=== PATIENT | female | born 1970 | race Caucasian/White ===

== ENCOUNTER 2019-12-06 02:11 | Outpatient (CLI) | payer OTHER, SELFPAY ==
[2019-12-06 18:09] LABS: SARS-CoV-2 RNA PCR Negative
== END 2019-12-06 02:12 | disposition home or self-care (01) ==
LOC: ANHCOVIDDT 02:11
PROVIDERS: Visit Provider Internal Medicine Gastroenterology
DX: Z01.818 Encounter for other preprocedural examination (principal); Z11.59 Encounter for screening for other viral diseases
CPT/HCPCS: 87635; C9803; U0003

== ENCOUNTER 2019-12-09 03:32 | Day surgery (SDC) | payer OTHER, SELFPAY ==
[2019-12-04 10:38] VITALS: BMI 22.6
[2019-12-09 12:32] VITALS: BMI 23.5
[2019-12-09] MEDS: LACTATED RINGERS 1,000 ML 150 ML IV CONT (12:45)
--- NOTE | 2019-12-09 14:23 | WPDANESEPPF ---
Anes - Initial Pre Proc Eval Procedure: Operation Date: 12/09/19 13:45 Proposed Procedures p Esophagogastroduodenoscopy - Bernardino Frias MD Date/Time: 12/09/19 14:23 Surgeon: Bernardino Frias MD Pre Op Diagnosis: GERD Patient Data Age: 49 Gender: F Height: 5 ft 4 in Weight: 62.1 kg Allergies Allergy/AdvReac Type Severity Reaction Status Date / Time hydrocodone Allergy Unknown unknown Verified 12/09/19 12:31 codine Allergy Unknown unknown Uncoded 12/04/19 10:35 Home Medications Medication Instructions Recorded Confirmed Type albuterol (refill) 90 90 mcg INHALATION QID 11/13/19 12/04/19 History mcg/actuation aerosol inhaler cetirizine 10 mg capsule 10 mg PO DAILY 11/13/19 12/04/19 History ipratropium bromide 17 1 puff INHALATION QID 11/13/19 12/04/19 History mcg/actuation HFA aerosol inhaler montelukast 10 mg tablet 10 mg PO DAILY 11/13/19 12/04/19 History omeprazole 20 mg capsule,delayed 20 mg PO DAILY 11/13/19 12/04/19 History release sumatriptan succinate 100 mg tablet 100 mg PO ONCE 11/13/19 History tramadol 50 mg tablet 50 mg PO Q6H PRN 11/13/19 History peg 3350-electrolytes 236 240 ml PO Q10M #4000 ml 12/02/19 Rx gram-22.74 gram-6.74 gram-5.86 gram solution Patient hx anesthesia problems: none Family hx anesthesia problems: none PMFSH Past Medical History Medical History Constipation COPD (chronic obstructive pulmonary disease) Fibromyalgia Hyperlipemia Lymphadenitis Seasonal allergies Surgical History Surgical History H/O prior ablation treatment H/O tubal ligation Social History Social History Smoking status: Current every day smoker Tobacco type: cigarettes Alcohol intake: never Substance use: current Substance use type: marijuana Anes - Eval Final PreProcedure Day of Procedure 12/09/19 14:23 Patient weight: normal Heart: regular rate and rhythm Lungs: clear to auscultation Airway: Mallampati scale class II Neurological: alert and oriented Last oral intake: >/= 8 hours ASA classification: III Emergent: no Anesthetic plan: proceed Anesthesia type and monitoring: general GIVS and standard monitoring Informed Consent: The patient's anesthetic plan and its attendant risks and benefits were discussed with the patient/family/POA. Questions were solicited and answers provided to the satisfaction of the patient/family/POA.
--- NOTE | 2019-12-09 14:41 | PM.HPGS ---
History of Present Illness History of Present Illness Consent: Risks, benefits, and alternatives have been discussed and questions answered. Patient agrees to proceed with procedure. Chief complaint: GERD Narrative: Soni Voss is a 49 year old female with gerd better with omeprazole, also bloating Review of Systems Constitutional: Constitutional: Denies headache(s) and Denies weakness Eyes: Eyes: Denies blurry vision ENT: Reports Normal hearing present, Denies headache(s) and Denies neck pain Cardiovascular: Cardiovascular: Denies chest pain and Denies dyspnea Respiratory: Respiratory: Denies dyspnea Gastrointestinal: Gastrointestinal: Reports no additional gastrointestinal complaints Genitourinary: Genitourinary: Denies dysuria Musculoskeletal: Musculoskeletal: Denies neck pain Integumentary/Breasts: Skin/Breast: Denies dry skin Neurologic: Reports Normal hearing present, Denies headache(s) and Denies weakness Psychiatric: Psychiatric: Denies anxiety Endocrine: Endocrine: Denies change in body appearance Hematologic/Lymphatic: Hematologic/Lymphatic: Denies easy bleeding Allergic/Immunologic: Allergic/Immunologic: Denies urticaria PMFSH Past Medical History Medical History Constipation COPD (chronic obstructive pulmonary disease) Fibromyalgia Hyperlipemia Lymphadenitis Seasonal allergies Surgical History Surgical History H/O prior ablation treatment H/O tubal ligation Social History Social History Smoking status: Current every day smoker Tobacco type: cigarettes Alcohol intake: never Substance use: current Substance use type: marijuana Meds Home Medications and Allergies Home Medications Medication Instructions Recorded Confirmed Type albuterol (refill) 90 90 mcg INHALATION QID 11/13/19 12/04/19 History mcg/actuation aerosol inhaler cetirizine 10 mg capsule 10 mg PO DAILY 11/13/19 12/04/19 History ipratropium bromide 17 1 puff INHALATION QID 11/13/19 12/04/19 History mcg/actuation HFA aerosol inhaler montelukast 10 mg tablet 10 mg PO DAILY 11/13/19 12/04/19 History omeprazole 20 mg capsule,delayed 20 mg PO DAILY 11/13/19 12/04/19 History release sumatriptan succinate 100 mg tablet 100 mg PO ONCE 11/13/19 History tramadol 50 mg tablet 50 mg PO Q6H PRN 11/13/19 History peg 3350-electrolytes 236 240 ml PO Q10M #4000 ml 12/02/19 Rx gram-22.74 gram-6.74 gram-5.86 gram solution Allergies Allergy/AdvReac Type Severity Reaction Status Date / Time hydrocodone Allergy Unknown unknown Verified 12/09/19 12:31 codine Allergy Unknown unknown Uncoded 12/04/19 10:35 Exam Const: General: comfortable and no acute distress HENMT: General nose exam: Normal nares present Eyes: General: appearance normal, both eyes and all related structures Neck: Neck: no JVD Resp: Auscultation: clear to auscultation bilaterally Cardio: Rate: regular rate Rhythm: regular rhythm GI: Inspection: non-distended GI Palp: Yes Soft to palpation Skin: General skin exam: normal color Neuro: General: gait normal Speech: normal speech Extrem: General: normal to inspection Psych: Mental Status: mental status grossly normal Assessment and Plan Assessment and plan (1) GERD (gastroesophageal reflux disease): Code(s): K21.9 - Gastro-esophageal reflux disease without esophagitis Status: Acute Assessment and Plan: egd with biopsies, better with ppi (2) Bloating: Code(s): R14.0 - Abdominal distension (gaseous) Status: Acute Assessment and Plan: assess if celiac disease (3) COPD (chronic obstructive pulmonary disease): Code(s): J44.9 - Chronic obstructive pulmonary disease, unspecified Status: Acute
[2019-12-09] MEDS: BENZOCAINE (*SP) 60 ML SPRAY CAN (HURRICAINE) 1 SPRAY MUCOUS MEM (14:43)
[2019-12-09 14:58] VITALS: BP 100/53; PULSE 52; RESP 19; O2SAT 98
[2019-12-09 15:08] VITALS: BP 116/62; PULSE 62; RESP 19; O2SAT 98
[2019-12-09 15:18] VITALS: BP 119/68; PULSE 62; RESP 19; O2SAT 98
== END 2019-12-09 15:32 | disposition home or self-care (01) ==
PROVIDERS: PCP Family Medicine; Visit Provider Internal Medicine Gastroenterology
PROC: 0DJ08ZZ Inspection of Upper Intestinal Tract, Via Natural or Artificial Opening Endoscopic (ICD-10-PCS; CPT 43235; principal; 2019-12-09 13:45)
DX: K21.9 Gastro-esophageal reflux disease without esophagitis (principal); K29.50 Unspecified chronic gastritis without bleeding; E78.5 Hyperlipidemia, unspecified; J44.9 Chronic obstructive pulmonary disease, unspecified; M79.7 Fibromyalgia; F17.210 Nicotine dependence, cigarettes, uncomplicated
CPT/HCPCS: 43239; 88305; J2704; J7120

== ENCOUNTER → 2020-09-04 00:40 | Outpatient (CLI) | payer MEDICARE, MEDICAID, SELFPAY ==
[2020-09-04 18:52] LABS: SARS-CoV-2 RNA PCR Negative
== END ==
PROVIDERS: PCP Family Medicine; Visit Provider Internal Medicine Gastroenterology
DX: Z01.812 Encounter for preprocedural laboratory examination (principal); Z20.822 Contact with and (suspected) exposure to COVID-19
CPT/HCPCS: C9803; U0003; U0005

== ENCOUNTER 2020-09-07 01:57 | Day surgery (SDC) | payer MEDICARE, MEDICAID, SELFPAY ==
[2020-08-30 12:14] VITALS: BMI 23.8
[2020-09-07] MEDS: LACTATED RINGERS 1,000 ML 150 ML IV CONT (06:58)
[2020-09-07 07:01] VITALS: BP 146/82; PULSE 78; RESP 18; TEMP 37; O2SAT 100; BMI 22.7
--- NOTE | 2020-09-07 07:47 | WPDANESEPPF ---
Anes - Initial Pre Proc Eval Procedure: Operation Date: 09/07/20 08:00 Proposed Procedures p Colonoscopy - Bernardino Frias MD Date/Time: 09/07/20 07:47 Surgeon: Bernardino Frias MD Pre Op Diagnosis: Constipation, Change In Bowel Habits Patient Data Age: 50 Gender: F Height: 5 ft 4 in Weight: 60.1 kg Last Vital Signs Temp 98.6 F 09/07/20 07:01 Pulse 78 09/07/20 07:01 Resp 18 09/07/20 07:01 BP 146/82 H 09/07/20 07:01 Pulse Ox 100 09/07/20 07:01 Allergies Allergy/AdvReac Type Severity Reaction Status Date / Time hydrocodone Allergy Unknown unknown Verified 09/07/20 06:59 codine Allergy Unknown unknown Uncoded 09/07/20 06:59 Home Medications Medication Instructions Recorded Confirmed Type albuterol (refill) 90 90 mcg INHALATION QID 11/13/19 08/30/20 History mcg/actuation aerosol inhaler cetirizine 10 mg capsule 10 mg PO DAILY 11/13/19 08/30/20 History montelukast 10 mg tablet 10 mg PO DAILY 11/13/19 08/30/20 History omeprazole 20 mg capsule,delayed 20 mg PO DAILY 11/13/19 08/30/20 History release plecanatide 3 mg tablet 3 mg PO DAILY #30 tablet 07/19/20 08/30/20 Rx sodium,potassium,mag sulfates 17.5 See Rx Instructions PO .COMPLEX 07/26/20 Rx gram-3.13 gram-1.6 gram oral soln #354 ml famotidine 10 mg PO DAILY 08/30/20 08/30/20 History Patient hx anesthesia problems: none Family hx anesthesia problems: none PMFSH Past Medical History Medical History (Updated 07/19/20 @ 15:47 by JOEY Carballo) Bloating Constipation COPD (chronic obstructive pulmonary disease) Fibromyalgia GERD (gastroesophageal reflux disease) Hyperlipemia Lymphadenitis Seasonal allergies Tobacco abuse Surgical History Surgical History H/O prior ablation treatment H/O tubal ligation Social History Social History (Reviewed 07/19/20 @ 15:06 by GIOVANI Ramirez Smoking status: Current every day smoker Tobacco type: cigarettes Alcohol intake: never Substance use: current Substance use type: marijuana Living arrangements: with family Gender identity (if verbalized by the patient): Female Spiritual care concerns: No Anes - Eval Final PreProcedure Day of Procedure 09/07/20 07:47 Patient weight: normal Heart: regular rate and rhythm Lungs: clear to auscultation Airway: Mallampati scale class II Neurological: alert and oriented Last oral intake: >/= 8 hours ASA classification: III Emergent: no Anesthetic plan: proceed Anesthesia type and monitoring: general GIVS and standard monitoring Informed Consent: The patient's anesthetic plan and its attendant risks and benefits were discussed with the patient/family/POA. Questions were solicited and answers provided to the satisfaction of the patient/family/POA.
--- NOTE | 2020-09-07 07:55 | PM.HPGS ---
History of Present Illness History of Present Illness Consent: Risks, benefits, and alternatives have been discussed and questions answered. Patient agrees to proceed with procedure. Chief complaint: Constipation, Change In Bowel Habits Narrative: Soni Voss is a 50 year old female here for screening colonoscopy, last one 2017 Review of Systems Constitutional: Constitutional: Denies headache(s) and Denies weakness Eyes: Eyes: Denies blurry vision ENT: Reports Normal hearing present, Denies headache(s) and Denies neck pain Cardiovascular: Cardiovascular: Denies chest pain and Denies dyspnea Respiratory: Respiratory: Denies dyspnea Gastrointestinal: Gastrointestinal: Reports no additional gastrointestinal complaints Genitourinary: Genitourinary: Denies dysuria Musculoskeletal: Musculoskeletal: Denies neck pain Integumentary/Breasts: Skin/Breast: Denies dry skin Neurologic: Reports Normal hearing present, Denies headache(s) and Denies weakness Psychiatric: Psychiatric: Denies anxiety Endocrine: Endocrine: Denies change in body appearance Hematologic/Lymphatic: Hematologic/Lymphatic: Denies easy bleeding Allergic/Immunologic: Allergic/Immunologic: Denies urticaria PMFSH Past Medical History Medical History (Updated 09/07/20 @ 07:55 by Bernardino Frias MD) Bloating Colon cancer screening Constipation COPD (chronic obstructive pulmonary disease) Fibromyalgia GERD (gastroesophageal reflux disease) Hyperlipemia Lymphadenitis Seasonal allergies Tobacco abuse Surgical History Surgical History H/O prior ablation treatment H/O tubal ligation Social History Social History Smoking status: Current every day smoker Tobacco type: cigarettes Alcohol intake: never Substance use: current Substance use type: marijuana Living arrangements: with family Gender identity (if verbalized by the patient): Female Spiritual care concerns: No Meds Home Medications and Allergies Home Medications Medication Instructions Recorded Confirmed Type albuterol (refill) 90 90 mcg INHALATION QID 11/13/19 08/30/20 History mcg/actuation aerosol inhaler cetirizine 10 mg capsule 10 mg PO DAILY 11/13/19 08/30/20 History montelukast 10 mg tablet 10 mg PO DAILY 11/13/19 08/30/20 History omeprazole 20 mg capsule,delayed 20 mg PO DAILY 11/13/19 08/30/20 History release sodium,potassium,mag sulfates 17.5 See Rx Instructions PO .COMPLEX 07/26/20 Rx gram-3.13 gram-1.6 gram oral soln #354 ml famotidine 10 mg PO DAILY 08/30/20 08/30/20 History plecanatide 3 mg tablet 3 mg PO DAILY #30 tablet 09/07/20 Rx Allergies Allergy/AdvReac Type Severity Reaction Status Date / Time hydrocodone Allergy Unknown unknown Verified 09/07/20 06:59 codine Allergy Unknown unknown Uncoded 09/07/20 06:59 Vital Signs Vital Signs - 24 hr 09/07/20 07:01 Temperature 98.6 F Pulse Rate 78 Respiratory Rate 18 Blood Pressure 146/82 H Pulse Oximetry 100 Exam Const: General: comfortable and no acute distress HENMT: General nose exam: Normal nares present Eyes: General: appearance normal, both eyes and all related structures Neck: Neck: no JVD Resp: Auscultation: clear to auscultation bilaterally Cardio: Rate: regular rate Rhythm: regular rhythm GI: Inspection: non-distended GI Palp: Yes Soft to palpation Skin: General skin exam: normal color Neuro: General: gait normal Speech: normal speech Extrem: General: normal to inspection Psych: Mental Status: mental status grossly normal Assessment and Plan Assessment and plan (1) Colon cancer screening: Code(s): Z12.11 - Encounter for screening for malignant neoplasm of colon Status: Acute Assessment and Plan: colonoscopy (2) Constipation: Code(s): K59.00 - Constipation, unspecified
[2020-09-07 08:14] VITALS: BP 102/67; PULSE 61; RESP 20; O2SAT 100
[2020-09-07 08:24] VITALS: BP 111/43; PULSE 62; RESP 20; O2SAT 100
[2020-09-07 08:34] VITALS: BP 112/58; PULSE 64; RESP 20; O2SAT 100
== END 2020-09-07 08:56 | disposition home or self-care (01) ==
PROVIDERS: PCP Family Medicine; Visit Provider Internal Medicine Gastroenterology
PROC: 0DJD8ZZ Inspection of Lower Intestinal Tract, Via Natural or Artificial Opening Endoscopic (ICD-10-PCS; CPT 45378; principal; 2020-09-07 08:00)
DX: Z12.11 Encounter for screening for malignant neoplasm of colon (principal); D12.5 Benign neoplasm of sigmoid colon; K62.89 Other specified diseases of anus and rectum; K64.8 Other hemorrhoids; K59.00 Constipation, unspecified; J44.9 Chronic obstructive pulmonary disease, unspecified; M79.7 Fibromyalgia; E78.5 Hyperlipidemia, unspecified; K21.9 Gastro-esophageal reflux disease without esophagitis; F17.210 Nicotine dependence, cigarettes, uncomplicated; F12.90 Cannabis use, unspecified, uncomplicated; Z79.51 Long term (current) use of inhaled steroids
CPT/HCPCS: 45385; 88305; J2704; J7120

== ENCOUNTER 2020-11-18 07:58 | Outpatient (CLI) | payer MEDICARE, MEDICAID, SELFPAY ==
--- NOTE | ~2020-11-18 | NM_ITS ---
EXAM: NM gastric emptying study DATE: 11/18/2020 13:12 INDICATION: Nausea TECHNIQUE: A gastric emptying study was performed using the methodology of Gretchen MELGOZA, et al. J Nucl Med 2007; 48:568-572. The patient was given a meal consisting of 2 scrambled eggs labeled with 1 mCi Tc-99m sulfur colloid, 2 slices of toast, two packages of jam, and approximately 120 mL of water. Si multaneous anterior and posterior 1-min images of the abdomen were obtained with the patient supine a t multiple time points over a total period of 4 hours. The geometric mean of anterior and posterior v iews was determined, and the percentage retention was calculated for each time point. COMPARISON: None. FINDINGS: Gastric retention of the radiotracer-labeled meal was 56%, 43%, and 17% at the 1-hour, 2-hour, and 4- hour time points, respectively. With this technique, apparent rapid gastric emptying is suggested by <30% gastric retention at 1 hour. Delayed gastric emptying is defined by gastric retention of >90% at 1 hour, >60% retention at 2 hours, or >10% retention at 4 hours. IMPRESSION: 1. Normal gastric emptying. Reviewed, dictated and finalized at location A. IMPRESSION: 1. Normal gastric emptying.
== END 2020-11-18 07:59 | disposition home or self-care (01) ==
PROVIDERS: PCP Family Medicine; Visit Provider Nurse Practitioner Family
DX: R11.0 Nausea (principal); R14.0 Abdominal distension (gaseous)
CPT/HCPCS: 78264; A9541

== ENCOUNTER → 2021-01-29 00:52 | Outpatient (CLI) | payer MEDICARE, MEDICAID, SELFPAY ==
[2021-01-29 21:01] LABS: SARS-CoV-2 RNA PCR Negative
== END ==
PROVIDERS: PCP Family Medicine; Visit Provider Internal Medicine Gastroenterology
DX: Z01.812 Encounter for preprocedural laboratory examination (principal); Z20.828 Contact with and (suspected) exposure to other viral communicable diseases
CPT/HCPCS: C9803; U0003; U0005

== ENCOUNTER 2021-02-01 02:27 | Day surgery (SDC) | payer MEDICARE, MEDICAID, SELFPAY ==
[2021-01-25 08:37] VITALS: BMI 22.2
--- NOTE | 2021-02-01 08:51 | WPDANESEPPF ---
Anes - Initial Pre Proc Eval Procedure: Operation Date: 02/01/21 10:45 Proposed Procedures p Esophagogastroduodenoscopy - Bernardino Frias MD Date/Time: 02/01/21 08:51 Surgeon: Bernardino Frias MD Pre Op Diagnosis: dysphagia R13.10 Patient Data Age: 50 Gender: F Height: 1.6 m Weight: 57 kg Allergies Allergy/AdvReac Type Severity Reaction Status Date / Time hydrocodone Allergy Unknown Vomiting Verified 02/01/21 09:17 codeine Allergy Vomiting Verified 02/01/21 09:17 Home Medications Medication Instructions Recorded Confirmed Type plecanatide 3 mg tablet 3 mg PO DAILY #30 tablet 09/07/20 02/01/21 Rx albuterol sulfate 90 mcg/actuation 1 inh INHALATION Q4-6H PRN 11/02/20 02/01/21 History breath activated powder inhaler,sensor duloxetine 20 mg capsule,delayed 20 mg PO BID 11/02/20 02/01/21 History release fluticasone furoate 100 1 inh INHALATION DAILY 11/02/20 02/01/21 History mcg-vilanterol 25 mcg/dose inhalation powder topiramate 15 mg sprinkle capsule 75 mg PO DAILY 11/02/20 02/01/21 History amlodipine 5 mg PO DAILY 01/25/21 02/01/21 History potassium citrate 10 meq PO DAILY 01/25/21 02/01/21 History Patient hx anesthesia problems: none Family hx anesthesia problems: none PMFSH Past Medical History Medical History (Updated 01/28/21 @ 12:35 by Indra Rios DO) Anxiety Asthma Bloating Colon cancer screening Constipation COPD (chronic obstructive pulmonary disease) Depression Fibromyalgia GERD (gastroesophageal reflux disease) Hyperlipemia Hypertension Lymphadenitis Nausea Seasonal allergies Tobacco abuse Surgical History Surgical History (Updated 01/28/21 @ 12:35 by Indra Rios DO) H/O prior ablation treatment H/O tubal ligation History of hysterectomy Social History Social History Smoking packs per day: 1 Smoking cigarettes per day: 20.0 Years smoked: 40 Smoking pack-years: 40.00 Smoking status: Current every day smoker Tobacco type: cigarettes Alcohol intake: never Substance use: current Substance use type: marijuana Other substance usage details: CBD, THC (does not smoke) Living arrangements: with family Gender identity (if verbalized by the patient): Female Spiritual care concerns: No Anes - Eval Final PreProcedure Day of Procedure 02/01/21 08:51 Patient weight: normal Heart: regular rate and rhythm Lungs: clear to auscultation and normal air movement Airway: Mallampati scale class II Neurological: alert and oriented Last oral intake: >/= 8 hours ASA classification: III Emergent: no Anesthetic plan: proceed Anesthesia type and monitoring: general GIVS and standard monitoring Informed Consent: The patient's anesthetic plan and its attendant risks and benefits were discussed with the patient/family/POA. Questions were solicited and answers provided to the satisfaction of the patient/family/POA.
[2021-02-01 09:18] VITALS: BP 133/69; PULSE 58; RESP 16; TEMP 36.4; O2SAT 99
[2021-02-01] MEDS: LACTATED RINGERS 1,000 ML 150 ML IV CONT (09:21)
--- NOTE | 2021-02-01 10:27 | PM.HPGS ---
History of Present Illness History of Present Illness Consent: Risks, benefits, and alternatives have been discussed and questions answered. Patient agrees to proceed with procedure. Chief complaint: dysphagia R13.10 Narrative: Soni Voss is a 50 year old female with knot sensation throat, also bloating and intermittent nausea. EGD 2010 with mild gastritis, no celiac disease. GES was normal. Review of Systems Constitutional: Constitutional: Denies headache(s) and Denies weakness Eyes: Eyes: Denies blurry vision ENT: Reports Normal hearing present, Denies headache(s) and Denies neck pain Cardiovascular: Cardiovascular: Denies chest pain and Denies dyspnea Respiratory: Respiratory: Denies dyspnea Gastrointestinal: Gastrointestinal: Reports no additional gastrointestinal complaints Genitourinary: Genitourinary: Denies dysuria Musculoskeletal: Musculoskeletal: Denies neck pain Integumentary/Breasts: Skin/Breast: Denies dry skin Neurologic: Reports Normal hearing present, Denies headache(s) and Denies weakness Psychiatric: Psychiatric: Denies anxiety Endocrine: Endocrine: Denies change in body appearance Hematologic/Lymphatic: Hematologic/Lymphatic: Denies easy bleeding Allergic/Immunologic: Allergic/Immunologic: Denies urticaria PMFSH Past Medical History Medical History (Updated 02/01/21 @ 10:28 by Bernardino Frias MD) Anxiety Asthma Bloating Colon cancer screening Constipation COPD (chronic obstructive pulmonary disease) Depression Dysphagia Fibromyalgia GERD (gastroesophageal reflux disease) Hyperlipemia Hypertension Lymphadenitis Nausea Seasonal allergies Tobacco abuse Surgical History Surgical History (Updated 01/28/21 @ 12:35 by Indra Rios DO) H/O prior ablation treatment H/O tubal ligation History of hysterectomy Social History Social History Smoking packs per day: 1 Smoking cigarettes per day: 20.0 Years smoked: 40 Smoking pack-years: 40.00 Smoking status: Current every day smoker Tobacco type: cigarettes Alcohol intake: never Substance use: current Substance use type: marijuana Other substance usage details: CBD, THC (does not smoke) Living arrangements: with family Gender identity (if verbalized by the patient): Female Spiritual care concerns: No Meds Home Medications and Allergies Home Medications Medication Instructions Recorded Confirmed Type plecanatide 3 mg tablet 3 mg PO DAILY #30 tablet 09/07/20 02/01/21 Rx albuterol sulfate 90 mcg/actuation 1 inh INHALATION Q4-6H PRN 11/02/20 02/01/21 History breath activated powder inhaler,sensor duloxetine 20 mg capsule,delayed 20 mg PO BID 11/02/20 02/01/21 History release fluticasone furoate 100 1 inh INHALATION DAILY 11/02/20 02/01/21 History mcg-vilanterol 25 mcg/dose inhalation powder topiramate 15 mg sprinkle capsule 75 mg PO DAILY 11/02/20 02/01/21 History amlodipine 5 mg PO DAILY 01/25/21 02/01/21 History potassium citrate 10 meq PO DAILY 01/25/21 02/01/21 History Allergies Allergy/AdvReac Type Severity Reaction Status Date / Time hydrocodone Allergy Unknown Vomiting Verified 02/01/21 09:17 codeine Allergy Vomiting Verified 02/01/21 09:17 Vital Signs Vital Signs - 24 hr 02/01/21 09:18 Temperature 97.6 F Pulse Rate 58 L Respiratory Rate 16 Blood Pressure 133/69 Pulse Oximetry 99 Exam Const: General: comfortable and no acute distress HENMT: General nose exam: Normal nares present Eyes: General: appearance normal, both eyes and all related structures Neck: Neck: no JVD Resp: Auscultation: clear to auscultation bilaterally Cardio: Rate: regular rate Rhythm: regular rhythm GI: Inspection: non-distended GI Palp: Yes Soft to palpation Skin: General skin exam: normal color Neuro: General: gait normal Speech: normal speech Extrem: General: normal to i
[2021-02-01 10:46] VITALS: BP 96/58; PULSE 52; RESP 19; O2SAT 97
[2021-02-01 10:56] VITALS: BP 104/61; PULSE 53; RESP 19; O2SAT 97
[2021-02-01 11:06] VITALS: BP 118/69; PULSE 48; RESP 19; O2SAT 96
== END 2021-02-01 11:39 | disposition home or self-care (01) ==
PROVIDERS: PCP Internal Medicine; Visit Provider Internal Medicine Gastroenterology
PROC: 0DJ08ZZ Inspection of Upper Intestinal Tract, Via Natural or Artificial Opening Endoscopic (ICD-10-PCS; CPT 43235; principal; 2021-02-01 10:45)
DX: R13.10 Dysphagia, unspecified (principal); R14.0 Abdominal distension (gaseous); K29.70 Gastritis, unspecified, without bleeding; K21.9 Gastro-esophageal reflux disease without esophagitis; J44.9 Chronic obstructive pulmonary disease, unspecified; I10 Essential (primary) hypertension; E78.5 Hyperlipidemia, unspecified; F41.8 Other specified anxiety disorders; M79.7 Fibromyalgia; Z79.51 Long term (current) use of inhaled steroids; F17.210 Nicotine dependence, cigarettes, uncomplicated
CPT/HCPCS: 43239; 88305; C9803; J2704; J7120; U0003; U0005

== ENCOUNTER 2021-08-04 07:52 | Outpatient (CLI) | payer MEDICARE, MEDICAID, SELFPAY ==
--- NOTE | 2021-08-04 13:01 | WPDSIXMINUTE ---
Six Minute Walk Procedure Procedure Performed Pulmonary Stress Test (6 min walk) Six Minute Walk This 6 minute walk test was carried out with the patient breathing ambient air. The pre walk oxyhemoglobin saturation was 98%. The patient walked 365 m with no stops recorded. During the walk the oxyhemoglobin saturation remained over 98%. The perceived dyspnea at baseline was 1 on the Palak scale and increased to 9 at the end of the walk. Impression: No evidence of oxyhemoglobin desaturation on this testing.
== END 2021-08-04 07:53 | disposition home or self-care (01) ==
PROVIDERS: PCP Internal Medicine
DX: J45.40 Moderate persistent asthma, uncomplicated (principal); J44.9 Chronic obstructive pulmonary disease, unspecified
CPT/HCPCS: 94618

== ENCOUNTER 2021-11-18 13:30 | Outpatient (RCR) | payer MEDICARE, MEDICAID, SELFPAY ==
[2021-08-02 09:00] VITALS: PULSE 67
== END 2021-11-18 23:59 | disposition home or self-care (01) ==
LOC: ANHCPREHAB 13:30
PROVIDERS: PCP Internal Medicine
DX: J45.40 Moderate persistent asthma, uncomplicated (principal); J44.9 Chronic obstructive pulmonary disease, unspecified
CPT/HCPCS: 94625

== ENCOUNTER 2021-12-09 12:21 | Outpatient (CLI) | payer MEDICARE, MEDICAID, SELFPAY ==
--- NOTE | 2021-12-11 16:56 | WPDSIXMINUTE ---
Six Minute Walk Procedure Procedure Performed Pulmonary Stress Test (6 min walk) Six Minute Walk Six Minute Walk: DATE OF SERVIE: 12/09/2021 REQUESTING: Dr. Tony Maier REASON FOR TESTING: Asthma with irreversible airway obstruction SIX MINUTE WALK This test was conducted per ATS guidelines. The initial saturation was 99% and the pulse was 81. The patient walked while breathing room air. The patient walked a total of 600 ft/182.8 m without stopping to rest. The saturation at the completion of the study was 100%. The pulse was 86. The wrist oximeter was not working on this patient so saturation and heart rate were checked in 1 minute intervals. The saturation remained between 99 and 100%. The pulse remained between 90 and 92 beats per minute. Blood pressure was 103/66. IMPRESSION: No desaturation with exertion. No indication for supplemental oxygen with exertion. Distance walked is less than expected for age.
== END 2021-12-09 12:22 | disposition home or self-care (01) ==
LOC: ANHPFT 12:26
PROVIDERS: PCP Family Medicine; Visit Provider Internal Medicine Pulmonary Disease
DX: J45.40 Moderate persistent asthma, uncomplicated (principal); J44.9 Chronic obstructive pulmonary disease, unspecified
CPT/HCPCS: 94618

== ENCOUNTER 2022-02-16 14:29 | Outpatient (CLI) | payer MEDICARE, MEDICAID, SELFPAY ==
--- NOTE | ~2022-02-16 | XR_ITS ---
XR abdomen/kub 1V 02/16/2022 14:50 Indication: Chronic constipation. Generalized abdominal pain. Procedure: KUB Comparison: No prior studies for comparison. Findings: Bowel gas pattern is nonobstructive. Moderate colonic fecal loading. No abnormal calcificat ions. Lung bases unremarkable. There is lumbar spondylosis with dextroscoliosis. Impression: 1: Nonobstructive bowel gas pattern. Reviewed, dictated and finalized at location A. Impression: 1: Nonobstructive bowel gas pattern.
== END 2022-02-16 14:30 | disposition home or self-care (01) ==
PROVIDERS: PCP Family Medicine; Visit Provider Nurse Practitioner Family
DX: K59.00 Constipation, unspecified (principal)
CPT/HCPCS: 74018

== ENCOUNTER 2022-11-02 11:32 | Outpatient (CLI) | payer MEDICARE, MEDICAID, SELFPAY ==
--- NOTE | ~2022-11-02 | XR_ITS ---
XR abdomen/kub 1V DATE: 11/02/2022 12:05 INDICATION: Follow-up of right kidney stone TECHNIQUE: 2 supine AP views COMPARISON: 02/16/2022 KUB FINDINGS: No evidence of bowel obstruction. No visceromegaly is evident. No obvious urinary tract lacy cification is noted. There is dextroscoliosis of the thoracolumbar spine. Prominent degenerative disc disease is noted at L2-3. Abdominal aortic and iliac arterial calcifications. IMPRESSION: No obvious urinary tract calcifications are noted. Noncontrast CT abdomen pelvis examinat ion would be more sensitive for detection of urinary tract calculi. Reviewed, dictated and finalized at Location A. Reviewed, dictated and finalized at location L. IMPRESSION: No obvious urinary tract calcifications are noted. Noncontrast CT a bdomen pelvis examination would be more sensitive for detection of urinary trac t calculi.
== END 2022-11-02 11:33 | disposition home or self-care (01) ==
PROVIDERS: PCP Family Medicine; Visit Provider Urology
DX: N20.0 Calculus of kidney (principal)
CPT/HCPCS: 74018

== ENCOUNTER 2023-11-01 13:20 | Outpatient (CLI) | payer MEDICARE, MEDICAID, SELFPAY ==
--- NOTE | ~2023-11-01 | XR_ITS ---
XR abdomen/kub 1V Ordering provider: Mat Linder MD History: . Calcium Kidney Stone, FOLLOW-UP . Comparison: November 02, 2022 FINDINGS: BOWEL: Nonobstructive bowel gas pattern. ORGANOMEGALY: None. SIGNIFICANT PATHOLOGIC CALCIFICATIONS: None. OTHER: Dextroscoliosis with degenerative spine. No free air is seen under the diaphragm. IMPRESSION: No acute abdominal findings. Reviewed, dictated and finalized at location A.
== END 2023-11-01 13:21 | disposition home or self-care (01) ==
LOC: ANHIMG 13:21
PROVIDERS: PCP Family Medicine; Visit Provider Urology
DX: N20.0 Calculus of kidney (principal)
CPT/HCPCS: 74018